=== PATIENT | female | born 1930 | race Caucasian/White ===

== ENCOUNTER 2018-12-19 11:46 | Inpatient (IN) | payer OTHER | END 2018-12-21 13:04 | disposition home health service (06) | LOC: F3N 16:42 ==

== ENCOUNTER → 2018-12-22 | Outpatient (CLI) | payer OTHER | LOC: FIMAGING 13:32 | PROVIDERS: ATTEND Family Medicine | DX: R64 Cachexia (principal); R29.898 Other symptoms and signs involving the musculoskeletal system; N18.9 Chronic kidney disease, unspecified ==